=== PATIENT | male | born 1990 | race Caucasian/White ===

== ENCOUNTER 2023-04-14 19:20 | Emergency (ER) | payer BC, OTHER ==
[~2023-04-14] VITALS: Ht 188 cm; Wt 102.0 kg
[2023-04-14] MEDS ORDERED: PREDNISONE20 MG PO (19:36)
[2023-04-14] MEDS ORDERED: NAPROXEN500 MG PO (19:36)
[2023-04-14] MEDS ORDERED: CYCLOBENZAPRINE10 MG PO (19:37)
[2023-04-14 19:56] VITALS: BP 142/90
== END 2023-04-14 19:57 | disposition home or self-care (01) ==
LOC: ED 19:20
DX: M54.42 Lumbago with sciatica, left side (principal); Z88.0 Allergy status to penicillin; Z79.52 Long term (current) use of systemic steroids
CPT/HCPCS: 99283